=== PATIENT | male | born 1970 | race Caucasian/White ===

== ENCOUNTER 2019-02-15 11:11 | Day surgery (SDC) | payer OTHER ==
[2019-02-15] VITALS (14 sets, daily range): BP systolic 121–164; BP diastolic 74–94; PULSE 74–100; RESP 12–23; Ht 188 cm; Wt 88.4 kg
[~2019-02-15] VITALS: Ht 188 cm; Wt 88.4 kg
[~2019-02-15 11:11] MED LIST: OMEP20CA16 PO
[2019-02-15] MEDS ORDERED: LACTATED RINGER'S 1,000 ML IV SCH (12:30)
[2019-02-15] MEDS ORDERED: FENTAnyl 50 MCG/ML VIAL IV PRN (13:30)
[2019-02-15] MEDS ORDERED: HYDROmorphONE 1 MG/5 ML IV SYRINGE IV PRN ×3 (13:30)
[2019-02-15] MEDS ORDERED: ONDANSETRON 4 MG INJ IV PRN (13:30)
[2019-02-15] MEDS ORDERED: DIPHENHYDRAMINE 50 MG INJ IV PRN (13:30)
[2019-02-15] MEDS ORDERED: OXYCODONE/ACETAMINOPHEN (5/325) TAB PO PRN (13:30)
[2019-02-15] MEDS ORDERED: PROCHLORPERAZINE 10 MG INJ IV PRN (13:30)
[2019-02-15] MEDS ORDERED: MEPERIDINE 25 MG INJ IV PRN (13:30)
[2019-02-15] MEDS ORDERED: MIDAZOLAM 1 MG/ML 2 ML INJ ONE (13:55)
[2019-02-15] MEDS ORDERED: FENTAnyl 50 MCG/ML VIAL ONE ×2 (13:55→14:56)
[2019-02-15] MEDS ORDERED: CLINDAMYCIN 900 MG (PMX) 50 ML IVPB ONE (14:04)
[2019-02-15] MEDS ORDERED: DEXAMETHASONE 4 MG/ML 5 ML INJ ONE (14:05)
[2019-02-15] MEDS ORDERED: SUCCINYLCHOLINE CHLORIDE 100 MG/5 ML SYG IV ONE (14:05)
[2019-02-15] MEDS ORDERED: PROPOFOL 20 ML ONE (14:05)
[2019-02-15] MEDS ORDERED: LIDOCAINE 2% (SDV) 5 ML INJ ONE (14:05)
[2019-02-15] MEDS ORDERED: ONDANSETRON 4 MG INJ ONE (14:05)
[2019-02-15] MEDS ORDERED: LIDOCAINE 1% (MDV) 20 ML INJ INJ ONE (14:21)
[2019-02-15] MEDS ORDERED: CHLORHEXIDINE GLUCONATE 15 ML UD CUP MT SCH (14:30)
== END 2019-02-15 16:46 | disposition home or self-care (01) ==
LOC: SDS 11:11 → EDSEX 11:11 → SDS 16:46
PROVIDERS: ATTEND Otolaryngology
DX: K06.8 Other specified disorders of gingiva and edentulous alveolar ridge (principal)
CPT/HCPCS: 41827; 85025; 85610; 85730; 88307; J1100; J1170; J2250; J2405; J3010